=== PATIENT | male | born 1940 | race Caucasian/White ===

== ENCOUNTER → 2017-03-13 | Outpatient (CLI) | payer OTHER, MEDICARE ==
[~2017-03-13] MED LIST: ASPIRIN81 M2; BYDUREON2 MG; BYETTA PEN 51 PENIN1; CRESTOR10 MG; FENOFIBRATE200 MG; FISH OIL 1,0001 EAC7; GLUCOPHAGE500 MG; HUMALOG PE100 UNIT/1; LANTUSSOLASTAR; LISINOPRIL-HCT1 EAC1; MULTIVITAMINS; NAPROSYN500 MG; VERAPAMIL HCL120 MG
[2017-03-13 09:13] LABS: CREATININE 1.3 mg/dL (0.7-1.3)
== END ==
LOC: LABMALL 08:16
PROVIDERS: Orthopaedic Surgery
DX: M47.896 Other spondylosis, lumbar region (principal)